=== PATIENT | female | born 1970 | race Caucasian/White ===

== ENCOUNTER 2017-10-27 22:38 | Emergency (ER) | payer SELFPAY, OTHER ==
[2017-10-27 23:37] LABS: URINE PH (Dip) POC 6.5 (5.0-8.5)
[2017-10-27 23:37] LABS: URINE BLOOD (Dip) POC Negative (NEGATIVE); URINE GLUCOSE (Dip) POC Negative (NEGATIVE); URINE KETONES (Dip) POC Negative (NEGATIVE); URINE LEUKOCYTE EST (Dip) POC Negative (NEGATIVE); URINE NITRITE (Dip) POC Negative (NEGATIVE); URINE TOTAL PROTEIN POC Trace (NEGATIVE)
[2017-10-27] MEDS: LIDOCAINE/MYLANTA 40 ML BTL PO (23:51)
[2017-10-27 23:52] LABS: ADD MAN DIFF? NO
[2017-10-27] MEDS: ASPIRIN 325 MG TAB PO (23:53)
[2017-10-27 23:54] LABS: WHITE BLOOD COUNT 9.5 10^3/ul (4.8-10.8)
[2017-10-27 23:54] LABS: BASOPHIL # 0.1 10^3/ul (0.0-0.1); BASOPHILS % 0.6 % (0.0-2.0); EOSINOPHILS # 0.1 10^3/ul (0.0-0.5); EOSINOPHILS % 0.8 % (0.0-7.0); HEMATOCRIT 36.8 % (37.0-47.0); HEMOGLOBIN 12.1 g/dl (12.0-16.0); LYMPHOCYTES # 2.9 10^3/ul (0.8-2.9); LYMPHOCYTES % 30.3 % (15.0-51.0); MEAN CORPUSCULAR HEMOGLOBIN 28.6 pg (29.0-33.0); MEAN CORPUSCULAR HGB CONC 32.9 g/dl (32.0-37.0); MEAN PLATELET VOLUME 9.5 fl (7.4-10.4); MONOCYTE # 0.8 10^3/ul (0.3-0.9); MONOCYTES % 8.2 % (0.0-11.0); NEUTROPHIL # 5.7 10^3/ul (1.6-7.5); NEUTROPHILS % 59.8 % (39.0-77.0); PLATELET COUNT 362 10^3/UL (140-415); RED BLOOD COUNT 4.23 10^6/ul (4.20-5.40); RED CELL DISTRIBUTION WIDTH 13.3 % (11.5-14.5)
[2017-10-28 00:13] LABS: ANION GAP 11 (8-16); BLOOD UREA NITROGEN 14 mg/dl (7-20); CALCIUM 9.3 mg/dl (8.4-10.2); CARBON DIOXIDE 29 mmol/L (21-31); CHLORIDE 104 mmol/L (97-110); CREATININE 0.55 mg/dl (0.44-1.00); GLUCOSE 92 mg/dl (70-220); POTASSIUM 3.6 mmol/L (3.5-5.1); SODIUM 140 mmol/L (135-144)
[2017-10-28 00:25] LABS: B-TYPE NATRIURETIC PEPTIDE 54 PG/ML (0-125); TROPONIN-I < 0.010 ng/ml (0.000-0.120)
[2017-10-28] MEDS: hydrOXYzine PAMOATE 25 MG CAP PO (00:36)
== END 2017-10-28 02:20 | disposition home or self-care (01) ==
LOC: E/R 22:38
DX: R07.89 Other chest pain (principal)
CPT/HCPCS: 36415; 71045; 80048; 81003; 81025; 83880; 84484; 85025; 93005; 99285-25

== ENCOUNTER 2018-01-20 11:20 | Emergency (ER) | payer SELFPAY ==
[2018-01-20] MEDS: MECLIZINE 12.5 MG TAB PO (12:56)
== END 2018-01-20 13:46 | disposition home or self-care (01) ==
LOC: FTE 11:20
DX: R42 Dizziness and giddiness (principal)
CPT/HCPCS: 99282